=== PATIENT | female | born 1990 | race American Indian/Alaskan Native ===

== ENCOUNTER 2020-01-22 06:11 | Emergency (ER) | payer OTHER ==
[2020-01-22 06:40] VITALS: BP 116/80
--- NOTE | 2020-01-22 07:32 | XRay Report ---
CHEST 1 VIEW INDICATION: chestpain. COMPARISON: None. FINDINGS: Support devices: None. Heart: Normal. Lungs/Pleura: No acute pulmonary or pleural findings. IMPRESSION: 1. No acute findings. Signer Name: Josh Rojo MD Signed: 01/22/2020 7:27 AM Workstation Name: [id number]
--- NOTE | 2020-01-22 08:33 | Emergency Department Report ---
ED General Adult HPI - General Chief complaint: Chest Pain Stated complaint: CP,PANIC ATTACK Time Seen by Provider: 01/22/20 08:16 Source: patient Mode of arrival: Ambulatory Limitations: No Limitations - History of Present Illness Initial comments: The patient was evaluated in the emergency department for symptoms described in the history of present illness. He/she was evaluated in the context of the global COVID-19 pandemic, which necessitated consideration that the patient might be at risk for infection with the virus that causes COVID-19. Inst itutional protocols and algorithms that pertain to the evaluation of patients at risk for COVID-19 are in a state of rapid change based on information released by regulatory bodies including the CDC and federal and state organizations. These policies and algorithms were followed during the patient's care in the emergency department. Please note that these policies, procedures and recommendations changed on a rapid basis. 29-year-old -[place] female presents to the emergency room stating that she was having a panic attack all day yesterday. She states that she has a history of them but has not had any attacks in the last 10 years. Patient does admit to increased stress now having 3 kids all under the age of 13. She states that she works about 60 hours a week at home. She also is concerned that she may have a urinary tract infection as she has been having urinary urgency and frequency with cloudy urine. Patient states that she was having some left breast discomfort. She denies any drainage no nipple discharge no abnormality of the breast chest discomfort. She states her last menstrual period was 12/26/2019. She currently takes no medications on a daily basis has no known drug allergies. Onset/Timin -: days(s) Location: chest Severity scale (0 -10): 0 Consistency: intermittent Improves with: none Worsens with: other (Stressful thoughts) Associated Symptoms: chest pain. denies: nausea/vomiting Treatments Prior to Arrival: none - Related Data Previous Rx's Medication Instructions Recorded Last Taken Type Butalb/Acetamin/Caff 50-325-40 1 - 2 tab PO Q8HR PRN #20 tablet 01/01/20 Unknown Rx [Fioricet 50-325-40] Nitrofurantoin [place]/M-Cryst 100 mg PO Q12HR 10 Days #20 capsule 01/22/20 Unknown Rx [Macrobid CAP] Allergies Allergy/AdvReac Type Severity Reaction Status Date / Time No Known Allergies Allergy Unverified 01/01/20 17:32 ED Review of Systems ROS: Stated complaint: CP,PANIC ATTACK Other details as noted in HPI ED Past Medical Hx - Past Medical History Previous Medical History?: No Hx Psychiatric Treatment: Yes (Panic Attack) - Surgical History Past Surgical History?: No - Social History Smoking Status: Current Every Day Smoker - Medications Home Medications: Home Medications Medication Instructions Recorded Confirmed Last Taken Type Butalb/Acetamin/Caff 50-325-40 1 - 2 tab PO Q8HR PRN #20 tablet 01/01/20 Unknown Rx [Fioricet 50-325-40] Nitrofurantoin [place]/M-Cryst 100 mg PO Q12HR 10 Days #20 capsule 01/22/20 Unknown Rx [Macrobid CAP] ED Physical Exam - General Limitations: No Limitations General appearance: alert, in no apparent distress - Head Head exam: Present: atraumatic, normocephalic - Eye Eye exam: Present: normal appearance - ENT ENT exam: Present: mucous membranes moist - Neck Neck exam: Present: normal inspection - Respiratory Respiratory exam: Present: normal lung sounds bilaterally. Absent: respiratory distress - Cardiovascular Cardiovascular Exam: Present: regular rate, normal rhythm. Absent: systolic murmur, diastolic murmur, rubs, gallop - GI/Abdominal GI/Abdominal exam: Present: soft, normal bowel sounds - Extremities Exam Extremities exam: Present: normal inspection - Back Exam Back exam: Present: normal inspection - Neurological Exam Neurological exam: Present: alert, oriented X3 - Psychiatric Psychiatric exam: Present: normal affect, normal mood - Skin Skin exam: Present: warm, dry, intact, normal color. Absent: rash ED Course Vital Signs 01/22/20 06:38 Temperature 98.9 F Pulse Rate 83 Respiratory 16 Rate Blood Pressure 116/80 O2 Sat by Pulse 97 Oximetry ED Medical Decision Making - Medical Decision Making 29-year-old -[place] female presents to the emergency room stating that she was having a panic attack all day yesterday. She states that she has a history of them but has not had any attacks in the last 10 years. Patient does admit to increased stress now having 3 kids all under the age of 13. She states that she works about 60 hours a week at home. She also is concerned that she may have a urinary tract infection as she has been having urinary urgency and frequency with cloudy urine. Patient states that she was having some left breast discomfort. She denies any drainage no nipple discharge no abnormality of the breast chest discomfort. She states her last menstrual period was 12/26/2019. She currently takes no medications on a daily basis has no known drug allergies. Critical care attestation.: If time is entered above; I have spent that time in minutes in the direct care of this critically ill patient, excluding procedure time. ED Disposition Clinical Impression: Panic attacks, UTI (urinary tract infection) Disposition: TO HOME OR SELFCARE Is pt being admited?: No Does the pt Need Aspirin: No Condition: Stable Instructions: Anxiety (ED), Urinary Tract Infection in Women (ED) Additional Instructions: Please complete your antibiotics as prescribed. Increase your water intake. Void after intercourse and do not hold your urine. Follow-up with your primary care provider and I am referring you to a mental health provider for evaluation your panic attacks. Prescriptions: Nitrofurantoin [place]/M-Cryst [Macrobid CAP] 100 mg PO Q12HR 10 Days #20 capsule Referrals: [facility] [Other] - 3-5 Days [facility] [Outside] - 3-5 Days Forms: Work/School Release Form(ED)
[2020-01-22 08:51] LABS: HCG Qualitative,Urine Negative (Negative)
[2020-01-22 08:55] LABS: Bacteria,Urine 1+ /HPF (Negative); Bilirubin,Urine NEG (Negative); Blood,Urine NEG (Negative); Color,Urine Yellow (Yellow); Mucus,Urine FEW /HPF; Protein,Urine <15 mg/dL mg/dL (Negative); Urobilinogen,Urine < 2.0 mg/dL (<2.0)
== END 2020-01-22 10:27 | disposition home or self-care (01) ==
LOC: ED 06:11
DX: F41.0 Panic disorder [episodic paroxysmal anxiety] (principal); N39.0 Urinary tract infection, site not specified; F17.200 Nicotine dependence, unspecified, uncomplicated; Z79.899 Other long term (current) drug therapy
CPT/HCPCS: 71045; 81001; 81025; 87086; 93005

== ENCOUNTER 2020-05-27 18:10 | Emergency (ER) | payer OTHER ==
[2020-05-27 18:17] VITALS: BP 118/75
[2020-05-27 19:31] LABS: Basophils % (Auto) 0.1 % (0.0-1.8); Eosinophils # (Auto) 0.1 K/mm3 (0.0-0.4); Eosinophils % (Auto) 1.8 % (0.0-4.3); Hematocrit 40.9 % (30.3-42.9); Lymphocytes # (Auto) 1.7 K/mm3 (1.2-5.4); Lymphocytes % (Auto) 27.5 % (13.4-35.0); Mean Corpuscular HGB Conc 34 % (30-34); Mean Corpuscular Volume 94 fl (79-97); Monocytes # (Auto) 0.7 K/mm3 (0.0-0.8); Monocytes % (Auto) 10.4 % (0.0-7.3); Platelet Count 225 K/mm3 (140-440); Red Blood Count 4.34 M/mm3 (3.65-5.03); Red Cell Distribution Width 12.7 % (13.2-15.2)
[2020-05-27 19:52] LABS: Alanine Aminotransferase 15 units/L (7-56); Albumin 4.1 g/dL (3.9-5); BUN/Creatinine Ratio 9; Blood Urea Nitrogen 7 mg/dL (7-17); Calcium 9.1 mg/dL (8.4-10.2); Hemolysis Index 7
--- NOTE | 2020-05-27 20:06 | Emergency Department Report ---
ED General Adult HPI - General Chief complaint: Upper Respiratory Infection Stated complaint: SINUS DRAINAGE/CHEST CONGESTION Time Seen by Provider: 05/27/20 20:00 Source: patient Mode of arrival: Ambulatory Limitations: No Limitations - History of Present Illness Initial comments: 29-year-old -Kittitian female smoker presents to emergency department complaining of continued nasal congestion sinus drainage after seeing her "David" Dr. Prescribed Flonase and Bromfed-DM states that her symptoms has continued to linger states that she still has heavy nasal congestion, sinus pressure, the sensation of fullness or something get stuck in her throat at night when she is especially when she is lying down. States that she has constant thick mucus. She reports no fevers, chills, sweats but also has had some pain to her neck and and sore throat with lump on the right side which she states is due to be followed up with what sounds like otolaryngology. Currently she states she takes take prednisone on a daily basis due to her reported MS but nonetheless her symptoms have not yet improved. Reports no fever, chills, sweats reports no chest pain palpitation but does get occasional fatigue. No abdominal pain no vaginal bleeding noted no joint pain, no chest pain, no shortness of breath and states that her organization has been managing well Improves with: none Worsens with: none Associated Symptoms: denies: chest pain, cough, fever/chills, loss of appetite, nausea/vomiting, syncope, weakness - Related Data Previous Rx's Medication Instructions Recorded Last Taken Type Butalb/Acetamin/Caff 50-325-40 1 - 2 tab PO Q8HR PRN #20 tablet 01/01/20 Unknown Rx [Fioricet 50-325-40] Nitrofurantoin [place]/M-Cryst 100 mg PO Q12HR 10 Days #20 capsule 01/22/20 Unknown Rx [Macrobid CAP] Allergies Allergy/AdvReac Type Severity Reaction Status Date / Time No Known Allergies Allergy Unverified 01/01/20 17:32 ED Review of Systems ROS: Stated complaint: SINUS DRAINAGE/CHEST CONGESTION Other details as noted in HPI Comment: All other systems reviewed and negative ED Past Medical Hx - Past Medical History Previous Medical History?: Yes Hx Psychiatric Treatment: Yes (Panic Attack) Additional medical history: enlarged spleen - Surgical History Past Surgical History?: No - Social History Smoking Status: Never Smoker Substance Use Type: None - Medications Home Medications: Home Medications Medication Instructions Recorded Confirmed Last Taken Type Butalb/Acetamin/Caff 50-325-40 1 - 2 tab PO Q8HR PRN #20 tablet 01/01/20 Unknown Rx [Fioricet 50-325-40] Nitrofurantoin [place]/M-Cryst 100 mg PO Q12HR 10 Days #20 capsule 01/22/20 Unknown Rx [Macrobid CAP] ED Physical Exam - General Limitations: No Limitations General appearance: alert, in no apparent distress - Head Head exam: Present: atraumatic, normocephalic - Eye Eye exam: Present: normal appearance, PERRL, EOMI Pupils: Present: normal accommodation - ENT ENT exam: Present: mucous membranes moist, other (Have a stable of swelling to the nasal turbinate with increased erythema and excessive mucus buildup to the posterior sinuses. Possible polyp development.) - Expanded ENT Exam Expanded Mouth exam: Present: normal external inspection Throat exam: Positive: tonsillar erythema - Neck Neck exam: Present: normal inspection - Respiratory Respiratory exam: Present: normal lung sounds bilaterally. Absent: respiratory distress, wheezes, rhonchi, accessory muscle use, decreased breath sounds, prolonged expiratory - Cardiovascular Cardiovascular Exam: Present: regular rate, normal rhythm. Absent: systolic murmur, diastolic murmur, rubs, gallop - GI/Abdominal GI/Abdominal exam: Present: soft, normal bowel sounds. Absent: tenderness, guarding, hypoactive bowel sounds, mass, bruit, pulsatile mass - Extremities Exam Extremities exam: Present: normal inspection - Back Exam Back exam: Present: normal inspection - Neurological Exam Neurological exam: Present: alert, oriented X3 - Psychiatric Psychiatric exam: Present: normal affect, normal mood - Skin Skin exam: Present: warm, dry, intact, normal color. Absent: rash ED Course Vital Signs 05/27/20 18:14 Temperature 99.1 F Pulse Rate 90 Respiratory 20 Rate Blood Pressure 118/75 O2 Sat by Pulse 100 Oximetry ED Medical Decision Making - Lab Data Result diagrams: 05/27/20 19:19 05/27/20 19:19 - Medical Decision Making 29-year-old F Kitt[place] female with a 2-week history of nasal congestion sinus pressure which with appears to have evolution of sinusitis at current. Advised the patient the need to likely start on antibiotics on on antibiotics or follow- up with her primary care provider. She states she was primarily on interested in receiving blood work so that she knew that everything was was okay with her body. Advised of the risk and the dangers involved and encouraged her to decrease smoking, hydrate, continue her current medication regimen and follow-up with her PCP. Also discussed with her obtaining nasal rinses to help with her current issue but she seems extremely reluctant to any form of nasal washes as it has not been recommended by her "[place] doctor" Critical care attestation.: If time is entered above; I have spent that time in minutes in the direct care of this critically ill patient, excluding procedure time. ED Disposition Clinical Impression: Sinusitis Disposition: DC- TO HOME OR SELFCARE Is pt being admited?: No Does the pt Need Aspirin: No Condition: Stable Additional Instructions: Please follow-up with your primary provider at [facility] Referrals: VIDAL FLORES MD [Primary Care Provider] - 3-5 Days
== END 2020-05-27 23:10 | disposition left against medical advice (07) ==
LOC: ED 18:10
DX: J32.9 Chronic sinusitis, unspecified (principal); F41.0 Panic disorder [episodic paroxysmal anxiety]; Z79.899 Other long term (current) drug therapy
CPT/HCPCS: 36415; 80053; 84702; 85025; 99283

== ENCOUNTER 2021-03-29 12:57 | Emergency (ER) | payer OTHER ==
[2021-03-29] MEDS ORDERED: PANTOPRAZOLE 40 MG INJ IV ONE (13:13)
--- NOTE | 2021-03-29 13:13 | Event Note ---
ED Screening Note ED Screening Note: 30 yo comes to ER with rlq pain (hx ovarian cysts) and vomiting blood (see pix on her phone) She denies coughing/fever/chills SHE SPENT 3 DAYS AT [place] LAST YEAR FOR PAIN ASSOC. WITH HER CYSTS AND WAS SENT HOME ON PAIN MEDS hx MS on steroids and monthly injections (does not know the name) also takes daily [facility] MS ANXIETY OV CYSTS CIG SMOKER PSH DENIES LMP 2 W AGO This initial assessment/diagnostic orders/clinical plan/treatment(s) is/are subject to change based on patients health status, clinical progression and re- assessment by fellow clinical providers in the ED. Further treatment and workup at subsequent clinical providers discretion. Patient/guardian urged not to elope from the ED as their condition may be serious if not clinically assessed and managed. Initial orders include: GERD/ULCERS - on steroids ro ov cyst
[2021-03-29] MEDS ORDERED: SODIUM CHLORIDE 0.9% 1000 ML 1,000 ML IV ONE (13:40)
--- NOTE | 2021-03-29 13:50 | Emergency Department Report ---
HPI - General Chief Complaint: Abdominal Pain Time Seen by Provider: 03/29/21 13:12 - HPI HPI: 30-year-old -Syrian female presents to the emergency department with complaint of sharp right-sided pelvic pain, as well as nausea with vomiting including hematemesis, that started about 1 hour prior to presentation. The patient says that she has a history of a ruptured ovarian cyst that caused "internal bleeding" that occurred about a year ago and caused her to be admitted to [facility] for about 3 days. She says that this feels similar. She denies any fever, dysuria, vaginal bleeding or discharge. She also has a past medical history of MS. She has not taken anything for symptoms prior to presentation today. She says that the pelvic pain is currently 10 out of 10 in intensity. No known aggravating or alleviating factors. ED Past Medical Hx - Past Medical History Hx Psychiatric Treatment: Yes (Panic Attack) Additional medical history: enlarged spleen - Social History Smoking Status: Never Smoker Substance Use Type: None - Medications Home Medications: Home Medications Medication Instructions Recorded Confirmed Last Taken Type Butalb/Acetamin/Caff 50-325-40 1 - 2 tab PO Q8HR PRN #20 tablet 01/01/20 Unknown Rx [Fioricet 50-325-40] Nitrofurantoin [place]/M-Cryst 100 mg PO Q12HR 10 Days #20 capsule 01/22/20 Unk nown Rx [Macrobid CAP] Famotidine [Pepcid] 20 mg PO BID #20 tablet 03/29/21 Unknown Rx Ondansetron [Zofran Odt] 4 mg PO Q8HR PRN #15 tab.rapdis 03/29/21 Unknown Rx ED Review of Systems ROS: Stated complaint: ABD PAIN Other details as noted in HPI Comment: All other systems reviewed and negative Constitutional: denies: chills, fever Eyes: denies: eye pain, vision change ENT: denies: ear pain, throat pain Respiratory: denies: cough, shortness of breath Cardiovascular: denies: chest pain, palpitations Gastrointestinal: nausea, vomiting, hematemesis Genitourinary: other (Pelvic pain). denies: dysuria, discharge Musculoskeletal: denies: back pain, arthralgia Skin: denies: rash, lesions Neurological: denies: headache, weakness Physical Exam - Physical Exam Vital Signs: Vital Signs 03/29/21 13:04 Temperature 98.5 F Pulse Rate 83 Respiratory 20 Rate Blood Pressure 110/71 [Right] O2 Sat by Pulse 100 Oximetry Physical Exam: GENERAL: The patient is well-developed well-nourished. HENT: Normocephalic. Atraumatic. Patient has moist mucous membranes. EYES: Extraocular motions are intact. NECK: Supple. Trachea is midline. CHEST/LUNGS: Clear to auscultation. There is no respiratory distress noted. HEART/CARDIOVASCULAR: Regular. There is no tachycardia. There is no murmur. ABDOMEN: Abdomen is soft, nontender. No guarding. Patient has normal bowel sounds. There is no abdominal distention. SKIN: Skin is warm and dry. NEURO: The patient is awake, alert, and oriented. The patient is cooperative. Normal speech. MUSCULOSKELETAL: There is no tenderness or deformity. There is no limitation range of motion. ED Course Vital Signs 03/29/21 13:04 Temperature 98.5 F Pulse Rate 83 Respiratory 20 Rate Blood Pressure 110/71 [Right] O2 Sat by Pulse 100 Oximetry ED Medical Decision Making - Lab Data Result diagrams: 03/29/21 14:58 03/29/21 14:58 Lab Results 03/29/21 03/29/21 03/29/21 Range/Units 14:58 14:58 14:58 WBC 3.8 L (4.5-11.0) K/mm3 RBC 4.46 (3.65-5.03) M/mm3 Hgb 13.6 (10.1-14.3) gm/dl Hct 43.2 H (30.3-42.9) % MCV 97 (79-97) fl MCH 31 (28-32) pg MCHC 32 (30-34) % RDW 13.3 (13.2-15.2) % Plt Count 241 (140-440) K/mm3 Seg Neutrophils % Art Model PT (12.2-14.9) Sec. INR (0.87-1.13) APTT (24.2-36.6) Sec. Sodium 136 L (137-145) mmol/L Potassium 4.6 (3.6-5.0) mmol/L Chloride 103.0 (98-107) mmol/L Carbon Dioxide 22 (22-30) mmol/L Anion Gap 16 mmol/L BUN 9 (7-17) mg/dL Creatinine 0.8 (0.6-1.2) mg/dL Estimated GFR > 60 ml/min BUN/Creatinine Ratio 11 % Glucose 109 H (65-100) mg/dL Calcium 8.7 (8.4-10.2) mg/dL Total Bilirubin < 0.20 (0.1-1.2) mg/dL Direct Bilirubin < 0.2 (0-0.2) mg/dL Indirect Bilirubin 0.0 mg/dL AST 16 (5-40) units/L ALT 13 (7-56) units/L Alkaline Phosphatase 74 (35-129) units/L Total Protein 6.8 (6.3-8.2) g/dL Albumin 4.1 (3.9-5) g/dL Albumin/Globulin Ratio 1.5 % Lipase 14 (13-60) units/L HCG, Qual (Negative) Urine Color (Yellow) Urine Turbidity (Clear) Urine pH (5.0-7.0) Ur Specific [place] (1.003-1.030) Urine Protein (Negative) mg/dL Urine Glucose (UA) (Negative) mg/dL Urine Ketones (Negative) mg/dL Urine Blood (Negative) Urine Nitrite (Negative) Urine Bilirubin (Negative) Urine Urobilinogen (<2.0) mg/dL Ur Leukocyte Esterase (Negative) Urine WBC (Auto) (0.0-6.0) /HPF Urine RBC (Auto) (0.0-6.0) /HPF U Epithel Cells (Auto) (0-13.0) /HPF Urine Mucus /HPF 03/29/21 03/29/21 03/29/21 Range/Units 14:58 14:58 Unknown WBC (4.5-11.0) K/mm3 RBC (3.65-5.03) M/mm3 Hgb (10.1-14.3) gm/dl Hct (30.3-42.9) % MCV (79-97) fl MCH (28-32) pg MCHC (30-34) % RDW (13.2-15.2) % Plt Count (140-440) K/mm3 Seg Neutrophils % PT 13.2 (12.2-14.9) Sec. INR 0.90 (0.87-1.13) APTT 29.8 (24.2-36.6) Sec. Sodium (137-145) mmol/L Potassium (3.6-5.0) mmol/L Chloride (98-107) mmol/L Carbon Dioxide (22-30) mmol/L Anion Gap mmol/L BUN (7-17) mg/dL Creatinine (0.6-1.2) mg/dL Estimated GFR ml/min BUN/Creatinine Ratio % Glucose (65-100) mg/dL Calcium (8.4-10.2) mg/dL Total Bilirubin (0.1-1.2) mg/dL Direct Bilirubin (0-0.2) mg/dL Indirect Bilirubin mg/dL AST (5-40) units/L ALT (7-56) units/L Alkaline Phosphatase (35-129) units/L Total Protein (6.3-8.2) g/dL Albumin (3.9-5) g/dL Albumin/Globulin Ratio % Lipase (13-60) units/L HCG, Qual Negative (Negative) Urine Color Yellow (Yellow) Urine Turbidity Clear (Clear) Urine pH 7.0 (5.0-7.0) Ur Specific [place] 1.008 (1.003-1.030) Urine Protein <15 mg/dl (Negative) mg/dL Urine Glucose (UA) Neg (Negative) mg/dL Urine Ketones Neg (Negative) mg/dL Urine Blood Mod (Negative) Urine Nitrite Neg (Negative) Urine Bilirubin Neg (Negative) Urine Urobilinogen < 2.0 (<2.0) mg/dL Ur Leukocyte Esterase Tr (Negative) Urine WBC (Auto) 1.0 (0.0-6.0) /HPF Urine RBC (Auto) 1.0 (0.0-6.0) /HPF U Epithel Cells (Auto) 8.0 (0-13.0) /HPF Urine Mucus Few /HPF - Radiology Data Radiology results: report reviewed, image reviewed interpreted by me: Chest x-ray does not show any acute process. There are no pleural effusions, o bvious pneumonia and there is no pneumothorax. No widened mediastinum. Abdominal x-ray shows nonspecific nonobstructive bowel gas. No free air. ULTRASOUND PELVIS INDICATION / CLINICAL INFORMATION: pelvic pain. TECHNIQUE: Transabdominal and Transvaginal. Duplex Color Doppler used: Yes. COMPARISON: None available FINDINGS: UTERUS: Normal size and morphology. Endometrium is normal thickness measuring 2 mm. RIGHT ADNEXA: No significant ovarian cyst or mass. Normal color Doppler blood flow. LEFT ADNEXA: No significant ovarian cyst or mass. Normal color Doppler blood flow. URINARY BLADDER: No significant abnormality. FREE FLUID: None. ADDITIONAL FINDINGS: None. IMPRESSION: 1. No significant abnormality - Medical Decision Making This patient presents with acute right-sided pelvic pain, as well as nausea with vomiting and episode of hematemesis. On examination I am unable to reproduce any pelvic pain to palpation. The patient does not have any abdominal tenderness to palpation including in the right lower quadrant. No peritoneal signs. Patient has been given IV fluid resuscitation and antiemetic. Labs have been unremarkable including CBC, metabolic panel, urinalysis and the patient is not . She had a transvaginal/pelvic ultrasound that did not show any ovarian torsion, ovarian cysts, mass, any acute process or etiology of the patient's discomfort. Vital signs reassuring throughout her ED course including being afebrile. Patient was able to pass an oral challenge and there has been no further nausea, vomiting or hematemesis. For all these reasons the patient appears safe for discharge home at this time. She has an appointment with her [facility]SEM[facility]Y LEADER coming up in a few days. She has been instructed to follow-up with primary care. She has been given a prescription for an antiemetic and Pepcid. Critical Care Time: No Critical care attestation.: If time is entered above; I have spent that time in minutes in the direct care of this critically ill patient, excluding procedure time. ED Disposition Clinical Impression: Pelvic pain Nausea & vomiting Qualifiers: Vomiting type: unspecified Qualified Code(s): R11.2 - Nausea with vomiting, unspecified Hematemesis Qualifiers: Nausea presence: with nausea Qualified Code(s): K92.0 - Hematemesis Disposition: 01 HOME / SELF CARE / HOMELESS Is pt being admited?: No Condition: Stable Instructions: Hematemesis, Pelvic Pain, Female, Nausea and Vomiting, Adult, Abdominal Pain (ED) Additional Instructions: Please follow-up with your [facility]Y LEADER as previously scheduled. Please follow-up with a primary care physician. Return to the emergency department with any worsening of your symptoms, new or concerning symptoms not addressed during this current emergency department visit, or with any acute distress. Prescriptions: Famotidine [Pepcid] 20 mg PO BID #20 tablet Ondansetron [Zofran Odt] 4 mg PO Q8HR PRN #15 tab.rapdis PRN Reason: Nausea Referrals: PRIMARY CARE,MD [Primary Care Provider] - 3-5 Days OBGYN, Your [Other] - 3-5 Days Time of Disposition: 16:29
[2021-03-29 13:58] LABS: Bilirubin,Urine NEG (Negative); Blood,Urine MOD (Negative); Color,Urine Yellow (Yellow); Mucus,Urine FEW /HPF; Protein,Urine <15 mg/dL mg/dL (Negative); Urobilinogen,Urine < 2.0 mg/dL (<2.0)
[2021-03-29] MEDS ORDERED: MORPHINE 4 MG/1 ML INJ IV ONE (14:57)
--- NOTE | 2021-03-29 14:57 | Ultrasound Report ---
ULTRASOUND PELVIS INDICATION / CLINICAL INFORMATION: pelvic pain. TECHNIQUE: Transabdominal and Transvaginal. Duplex Color Doppler used: Yes. COMPARISON: None available FINDINGS: UTERUS: Normal size and morphology. Endometrium is normal thickness measuring 2 mm. RIGHT ADNEXA: No significant ovarian cyst or mass. Normal color Doppler blood flow. LEFT ADNEXA: No significant ovarian cyst or mass. Normal color Doppler blood flow. URINARY BLADDER: No significant abnormality. FREE FLUID: None. ADDITIONAL FINDINGS: None. IMPRESSION: 1. No significant abnormality. Signer Name: Bobo Santacruz MD Signed: 03/29/2021 2:53 PM Workstation Name: [id number]
[2021-03-29] MEDS ORDERED: HYDROcodone/ACETAMINOPHEN 5-325 MG TAB PO ONE (15:16)
[2021-03-29 15:19] LABS: Hematocrit 43.2 % (30.3-42.9); Hemoglobin 13.6 gm/dl (10.1-14.3); Mean Corpuscular HGB Conc 32 % (30-34); Mean Corpuscular Volume 97 fl (79-97); Platelet Count 241 K/mm3 (140-440); Red Blood Count 4.46 M/mm3 (3.65-5.03); Red Cell Distribution Width 13.3 % (13.2-15.2)
[2021-03-29 15:28] LABS: INR 0.9 (0.87-1.13)
[2021-03-29 15:29] LABS: Partial Thromboplastin Time 29.8 Sec. (24.2-36.6)
[2021-03-29 15:37] LABS: Alanine Aminotransferase 13 units/L (7-56); Albumin 4.1 g/dL (3.9-5); BUN/Creatinine Ratio 11; Bilirubin,Direct < 0.2 mg/dL (0-0.2); Blood Urea Nitrogen 9 mg/dL (7-17); Calcium 8.7 mg/dL (8.4-10.2); Hemolysis Index 15
--- NOTE | 2021-03-29 15:56 | XRay Report ---
ABDOMEN 3 VIEW(S) INDICATION / CLINICAL INFORMATION: abd pain- ro air under diaphragm. COMPARISON: None available. FINDINGS: TUBES / LINES: None. BOWEL GAS PATTERN: No significant abnormality. FREE AIR / EXTRALUMINAL GAS: None seen. ADDITIONAL FINDINGS: No significant additional findings. CHEST: Visualized chest shows no significant abnormality. IMPRESSION: 1. No bowel obstruction or free air. Signer Name: Roya Tadeo MD Signed: 03/29/2021 3:51 PM Workstation Name: [id number]
[2021-03-29 16:53] VITALS: BP 111/74
[2021-03-29 17:22] LABS: Total Cells Counted 100
[2021-03-29 17:24] LABS: Anisocytosis 1+; Poikilocytosis 1+
[2021-03-29 17:25] LABS: Hypochromasia 1+; Ovalocytes Few; Tear Drop Cells Few
[2021-03-29 17:26] LABS: Platelet Estimate Consistent w Auto; Target Cells Few
== END 2021-03-29 17:03 | disposition home or self-care (01) ==
LOC: ED 12:57
DX: K92.0 Hematemesis (principal)
CPT/HCPCS: 36415; 74022; 76830; 80048; 80076; 81001; 83690; 84703; 85007; 85025; 85610; 85730; 93975; 96361; 96374; 99284; C9113; J2270; J7030; Q0162

== ENCOUNTER 2021-04-18 15:01 | Emergency (ER) | payer OTHER ==
[2021-04-18 17:35] VITALS: BP 110/75
[2021-04-18] MEDS ORDERED: LORazepam 2 MG/ML VIAL IM STA (20:39)
--- NOTE | 2021-04-18 22:33 | Emergency Department Report ---
ED Anxiety HPI - General Chief Complaint: Medical Clearance Stated Complaint: NUMBNESS IN FACE Time Seen by Provider: 04/18/21 20:39 Source: patient Mode of arrival: Ambulatory - History of Present Illness Initial Comments: 30-year-old Spanish female out of her Klonopin unable to get into see her psychiatrist for another couple days presents emergency department complaining of having an anxiety/panic attack exacerbation resulting in some numbness and tingling to her face and and hands. She seeks to have medication refill medication to help alleviate her panic issue. Ports no suicidal homicidal ideation. No fever, chills, sweats. No no chest pain no cough no congestion no fever chills sweats MD Complaint: anxiety Previous History of Same: Yes Severity: mild Provoking factors: emotional stress, medication change Improves With: nothing Worsens With: nothing Associated symptoms: denies: palpitations, diaphoresis, fever/chills, headaches, seizure, syncope, weakness - Related Data Home Medications: Previous Rx's Medication Instructions Recorded Last Taken Type Butalb/Acetamin/Caff 50-325-40 1 - 2 tab PO Q8HR PRN #20 tablet 01/01/20 Unknown Rx [Fioricet 50-325-40] Nitrofurantoin Briscoe/M-Cryst 100 mg PO Q12HR 10 Days #20 capsule 01/22/20 Unknown Rx [Macrobid CAP] Famotidine [Pepcid] 20 mg PO BID #20 tablet 03/29/21 Unknown Rx Ondansetron [Zofran Odt] 4 mg PO Q8HR PRN #15 tab.rapdis 03/29/21 Unknown Rx clonazePAM [ Klonopin] 0.5 mg PO DAILY PRN #5 tab 04/18/21 Unknown Rx Allergies/Adverse Reactions: Allergies Allergy/AdvReac Type Severity Reaction Status Date / Time No Known Allergies Allergy Verified 03/29/21 13:04 ED Review of Systems ROS: Stated complaint: NUMBNESS IN FACE Other details as noted in HPI Comment: All other systems reviewed and negative ED Past Medical Hx - Past Medical History Hx Psychiatric Treatment: Yes (Panic Attack) Additional medical history: enlarged spleen. multipe sclerosis - Social History Smoking Status: Never Smoker Substance Use Type: None - Medications Home Medications: Home Medications Medication Instructions Recorded Confirmed Last Taken Type Butalb/Acetamin/Caff 50-325-40 1 - 2 tab PO Q8HR PRN #20 tablet 01/01/20 Unknown Rx [Fioricet 50-325-40] Nitrofurantoin Briscoe/M-Cryst 100 mg PO Q12HR 10 Days #20 capsule 01/22/20 Unknown Rx [Macrobid CAP] Famotidine [Pepcid] 20 mg PO BID #20 tablet 03/29/21 Unknown Rx Ondansetron [Zofran Odt] 4 mg PO Q8HR PRN #15 tab.rapdis 03/29/21 Unknown Rx clonazePAM [ Klonopin] 0.5 mg PO DAILY PRN #5 tab 04/18/21 Unknown Rx ED Physical Exam - General Limitations: No Limitations General appearance: alert, in no apparent distress - Head Head exam: Present: atraumatic, normocephalic - Eye Eye exam: Present: normal appearance - ENT ENT exam: Present: mucous membranes moist - Neck Neck exam: Present: normal inspection - Respiratory Respiratory exam: Present: normal lung sounds bilaterally. Absent: respiratory distress - Cardiovascular Cardiovascular Exam: Present: regular rate, normal rhythm. Absent: systolic murmur, diastolic murmur, rubs, gallop - GI/Abdominal GI/Abdominal exam: Present: soft, normal bowel sounds - Extremities Exam Extremities exam: Present: normal inspection - Back Exam Back exam: Present: normal inspection - Neurological Exam Neurological exam: Present: alert, oriented X3 - Psychiatric Psychiatric exam: Present: normal affect, normal mood, anxious. Absent: flat affect, manic, suicidal ideation - Skin Skin exam: Present: warm, dry, intact, normal color. Absent: rash ED Course Vital Signs 04/18/21 17:31 Temperature 98.8 F Pulse Rate 70 Respiratory 17 Rate Blood Pressure 110/75 O2 Sat by Pulse 100 Oximetry Critical care attestation.: If time is entered above; I have spent that time in minutes in the direct care of this critically ill patient, excluding procedure time. ED Disposition Clinical Impression: Anxiety Disposition: HOME / SELF CARE / HOMELESS Is pt being admited?: No Does the pt Need Aspirin: No Condition: Stable Instructions: Managing Anxiety, Adult Prescriptions: clonazePAM [ Klonopin] 0.5 mg PO DAILY PRN #5 tab PRN Reason: Anxiety Referrals: [facility] [Provider Group] - 3-5 Days PRIMARY CARE, [Primary Care Provider] - 3-5 Days
== END 2021-04-18 22:24 | disposition home or self-care (01) ==
LOC: ED 15:01
DX: F41.9 Anxiety disorder, unspecified (principal); G35 Multiple sclerosis
CPT/HCPCS: 96372; 99282; J2060

== ENCOUNTER 2021-12-15 05:24 | Outpatient (CLI) | payer OTHER ==
[2021-12-15 07:50] VITALS: BP 97/55
[2021-12-15] MEDS ORDERED: FAMOTIDINE 20 MG TAB PO SCH (08:00)
--- NOTE | 2021-12-17 16:48 | Electrocardiograph Report ---
[facility] Test Date: 2021-12-15 Test Time: 09:01:08 Pat Name: DESTINEY CHAN Department: Room: Gender: F [employer]ician: JU : 1990 Requested By: NAYA ABRAHAM Order Number: [id number] Reading MD: Amy Solomon Measurements Intervals Waves Rate: 78 P: 66 CT: 140 QRS: 30 QRSD: 97 T: 18 QT: 384 QTc: 438 Interpretive Statements Sinus rhythm No previous ECG available for comparison Electronically Signed On 12-17-2021 16:47:55 EDT by Amy Solomon
== END 2021-12-15 09:30 | disposition home or self-care (01) ==
LOC: TRG 05:24 → APU 05:25 → TRG 09:30
PROVIDERS: ATTEND Obstetrics & Gynecology Gynecology
DX: Z34.92 Encounter for supervision of normal pregnancy, unspecified, second trimester (principal); Z3A.27 27 weeks gestation of pregnancy
CPT/HCPCS: 59025; 93005